=== PATIENT | female | born 1985 | race Two or more races ===

== ENCOUNTER → 2024-07-22 | Outpatient (CLI) | payer OTHER, SELFPAY ==
--- NOTE | 2024-07-22 14:00 | XR_ITS ---
Examination: MRI right hand, without contrast Date and time of exam: July 22, 2024 1346 hrs. Indications: Right third digit stiffness numbness paresthesias after falling 3 months ago Technique: Multiple axial sagittal and coronal images of the right hand have been obtained with the Siemens high-resolution 1.5 Amy MRI scanner. Images obtained include T2-weighted fat-suppressed sagittal sections, TR 3500, TE 46, T2 weighted coronal fat suppressed images, TR 3050, TE 84, T2-weighted transverse fat suppressed images, TR 3260, TE 63, proton density transverse images, TR 4720 TE 46, and T1 weighted coronal images, TR 560, TE 13. Findings: No occult fracture, bone contusion marrow edema or avascular necrosis No asymmetric joint effusions There is edema in the subcutaneous fatty tissue surrounding the third digit Flexor extensor tendons are intact No annular franck tear At the wrist flexor tendons intact with normal median nerve No ganglion cyst No foreign body No soft tissue abscess Negative for cortical bone destruction Impression: Nonspecific edema in the subcutaneous fatty tissues surrounding the third digit especially the proximal phalanx No occult fracture bone contusion or marrow edema Flexor and extensor tendons appear intact with no annular franck tears
== END | disposition home or self-care (01) ==
PROVIDERS: PCP Registered Nurse; Referring Provider Registered Nurse; Visit Provider Registered Nurse
DX: M25.441 Effusion, right hand (principal)
CPT/HCPCS: 73218

== ENCOUNTER 2024-09-12 12:34 | Emergency (ER) | payer OTHER, SELFPAY ==
[2024-09-12 12:35] VITALS: BMI 28.0
[2024-09-12 13:16] VITALS: BP 120/74; PULSE 99; RESP 18; TEMP 36.8; O2SAT 98
--- NOTE | 2024-09-12 13:23 | XR_ITS ---
Examination: PA lateral chest 2 views TECHNIQUE: Upright PA lateral chest 2 views Exam date and time: September 12, 2024 1333 hours INDICATIONS: Left chest pain beginning 3 days ago. FINDINGS: Normal heart size. Lungs are clear. Osseous structures are intact. IMPRESSION: No active disease
--- NOTE | 2024-09-12 13:23 | EKG_ITS ---
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
--- NOTE | 2024-09-12 13:25 | PD.EDRME ---
Rapid Medical Screening Exam RME Arrival date/time: 09/12/24 12:34 39-year-old female presents the emergency department complaint of chest pain Chief Complaint: Chest Pain Time Seen by Provider: 09/12/24 13:10 Vital signs: Vital Signs Temperature 98.3 F 09/12/24 13:16 Pulse Rate 99 09/12/24 13:16 Respiratory Rate 18 09/12/24 13:16 Blood Pressure 120/74 09/12/24 13:16 Pulse Oximetry (%) 98 09/12/24 13:16 Oxygen Delivery Method Room Air 09/12/24 13:16
[2024-09-12 14:06] LABS: Basophils # (Auto) 0.1 Thou/mm3 (0.0-0.2); Basophils % (Auto) 1 % (0-2.5); Eosinophils # (Auto) 0.1 Thou/mm3 (0.0-0.5); Eosinophils % (Auto) 2 % (0-10); Hematocrit 35.8 % (36.0-46.0); Hemoglobin 12.1 g/dL (12.0-16.0); Immature Granulocytes % (Auto) 0 % (0-0); Immature Granulocytes Auto 0.02 Thou/mm3 (0.00-0.00); Lymphocytes # (Auto) 1.8 Thou/mm3 (1.0-4.8); Lymphocytes % (Auto) 23 % (10-50); Mean Corpuscular HGB Conc 33.8 g/dl (31.0-37.0); Mean Corpuscular Hemoglobin 30.3 pg (25.0-35.0); Mean Corpuscular Volume 90 fL (80-100); Monocytes # (Auto) 0.4 Thou/mm3 (0.0-0.8); Monocytes % (Auto) 5 % (0-12); Neutrophils # (Auto) 5.4 Thou/mm3 (1.8-7.7); Neutrophils % (Auto) 69 % (37-80); Nucleated Red Blood Cell % 0 /100 WBC (0); Platelet Count 303 Thou/mm3 (140-440); RDW Standard Deviation 40.7 fL (36.4-46.3); Red Blood Count 3.99 Miln/mm3 (4.00-5.20); White Blood Count 7.8 Thou/mm3 (3.6-11.0)
[2024-09-12 14:17] LABS: Alanine Aminotransferase 43 U/L (10-49); Albumin, Serum 4.3 gm/dL (3.5-5.0); Albumin/Globulin Ratio 1.7 (1.2-2.2); Alkaline Phosphatase 57 U/L (46-116); Anion Gap 9 (7-16); Aspartate Amino Transferase 36 U/L (0-34); BUN/Creatinine Ratio 13 Ratio (12-20); Bilirubin,Total 0.3 mg/dL (0.3-1.2); Blood Urea Nitrogen 9 mg/dL (9-23); Calcium 9.8 mg/dL (8.3-10.6); Calcium (Corrected) 9.8 mg/dL (8.5-10.1); Carbon Dioxide 23.8 mMol/L (20.0-31.0); Chloride 108 mMol/L (98-107); Creatinine (Component) 0.7 mg/dL (0.6-1.3); Estimated Creatinine Clearance 86.2 mL/min (>60); Globulin 2.6 gm/dL (2.3-3.5); Glucose 93 mg/dL (74-106); Osmolality,Calculated 279 (275-295); Sodium 141 mMol/L (136-145); Total Protein 6.9 gm/dL (5.7-8.2); Troponin I < 0.002 ng/mL (0.0-0.045); eGFR > 60 See Note
[2024-09-12 14:28] LABS: HCG Qualitative,Urine Negative
--- NOTE | 2024-09-12 15:53 | EDNOTE_ITS ---
ED Chest Pain RME/HPI General Chief Complaint: Chest Pain Stated Complaint: CHEST PAIN X3 DAYS Time Seen by Provider: 09/12/24 13:10 Arrival date/time: 09/12/24 12:34 39 year old female present to emergency room with c/o of chest pain for 2 days. patient report recently lost her father on wednesday and still grieving. Pt report right arm tingling/numbness without injury or trauma. Pt denies any cardiac history, illicit drug/alcohol abuse. LOCATION: arm/chest SEVERITY: Symptoms are described as being severe with limitations on activities of daily living QUALITY: Symptoms are described as being dull or achy CONTEXT: unknown DURATION/TIMING: The symptoms started approximately 2 days ago and have been co nstant this then. ASSOCIATED SYMPTOMS: The patient is unable to identify any other associated symptoms. MODIFYING FACTORS: The patient is unable to identify any alleviating or aggravating symptoms. PERTINENT ROS: no fevers, no headache, no neck or sob , no unexplained nausea or vomiting, no focal neurological deficits REVIEW OF SYSTEMS: See History of Present Illness - with the exception of those mentioned in the history of present illness, all other systems reviewed and reported as negative GENERAL: In general the patient is awake, interactive, in an emergency department gurney. HEAD/EYES/EARS/NOSE/THROAT: normo-cephalic, atraumatic, mucus membranes are moist, anicteric, palpebral conjunctiva is pink, trachea is midline. CARDIOVASCULAR: regular rate and regular rhythm, no murmurs, heart sounds are not distant, strong pulses in all four extremities that are equal and symmetric bilateral upper and lower extremities, normal capillary refill. CHEST/PULMONARY: + reducible chest pain, normal chest rise and fall, good air movement, clear to auscultation bilaterally, normal inspiratory to expiratory ratios without evidence of respiratory distress. NECK: No midline/Paraspinal tenderness, no step off ROM/Strenght intact No Kernig and bruzinski sign. No trauma ABDOMEN: soft, not tender, no masses appreciated BACK: normal range of motion without pain. NEUROLOGICAL: cranio-facial features are symmetric, moves all four extremities equally without obvious limitations or weakness. EXTREMITY: no tenderness to palpation over the long bones or large joints of the bilateral upper and lower extremities, no joint swelling, no joint erythema, no signs of trauma, no unilateral leg swelling and no peripheral edema. SKIN: warm, dry, well-perfused, no jaundice, no rash, no telangiectasias or petechia. PSYCH: calm, cooperative, no evidence of psychosis or agitation RME / HPI RME / HPI narrative: 09/12/24 12:34 39-year-old female presents the emergency department complaint of chest pain Related Data Previous Rx's ?Medication ?Instructions ?Recorded cyclobenzaprine 10 mg tablet 10 mg PO TID PRN muscle s pasm #30 01/31/21 tabs ibuprofen 600 mg tablet 600 mg PO Q8H PRN pain #30 t abs 01/31/21 ibuprofen 600 mg tablet 600 mg PO Q8H PRN pain #30 t abs 09/30/21 cyclobenzaprine 10 mg tablet 10 mg PO TID PRN muscle s pasm #21 02/13/22 tabs tramadol 37.5 mg-acetaminophen 325 1 tab PO TID PRN pa in #20 tabs 02/13/22 mg tablet (Ultracet) hydrocodone 5 mg-acetaminophen 325 1 tab PO BID PRN pa in #6 tabs 05/06/22 mg tablet ibuprofen 600 mg tablet 600 mg PO Q6H #30 tabs 05/06 alprazolam 0.5 mg tablet (Xanax) 0.5 mg PO BID PRN anx iety #5 tabs 11/26/22 ondansetron 4 mg disintegrating 4 mg PO Q8H PRN nausea and 11/26/22 tablet vomiting #14 tabs Allergies Allergy/AdvReac Type Severity Reaction Status Date / Time corn syrup Allergy Intermediate NAUSEA, Verified 09/12/24 12:37 VOMITING, MCKINNEY, CHEST TIGHTNESS codeine Allergy Rash Verified 09/12/24 12:37 ibuprofen Allergy Verified 09/12/24 12:37 Course Course Course Narrative: Medical Decision Making Patient presenting for evaluation of chest pain.? ?Pt immediately placed on cardiac, NBP, and oximetry monitors, which were all within normal limits.? ECG obtained and reviewed, which was NSR without any acute ST/T wave changes. CXR obtained and reviewed and did not demonstrate any acute abnormalities.? Labs obtained as noted above and were essentially unremarkable.? Troponin was negative. History, physical exam, laboratory, and radiographic findings were discussed with the patient.? At this time, it is felt that the most likely explanation for the patient's symptoms is chest wall pain.? I also considered pericarditis, ACS, angina, PE, pneumonia, rib fracture, and PTX, but this appears less likely considering the data gathered thus far.? I have instructed the patient to return to the ER at any time if there are any new or worsening symptoms.? The patient expressed understanding of and agreement with this plan.? Opportunity was given for questions prior to discharge and all stated questions were answered to the patient's satisfaction.? Home care instructions provided.?? Treatments provided included with ativan improvement in symptoms. Patient prescribed? Follow up in one or two days, present to ER with new or worsening symptoms. Quality Measures none Orders Category Date Time Status EKG (ED ONLY) *Do not use* NOW Care 09/12/24 13:23 Completed EKG (ED Only) Stat Exams 09/12/24 13:23 Draft XR chest 2V Stat Exams 09/12/24 13:23 Completed CBC Stat Lab 09/12/24 13:39 Completed Comprehensive Metabolic Panel Stat Lab 09/12/24 13:39 Completed Drug Screen,Urine Stat Lab 09/12/24 14:03 Completed HCG Qualitative,Urine Stat Lab 09/12/24 14:03 Completed Troponin I Stat Lab 09/12/24 13:39 Completed LORazepam [Ativan] Med 09/12/24 15:51 Discontinued 0.5 mg PO X1 ONE Ondansetron Odt [Zofran Odt] Med 09/12/24 16:57 Discontinued 4 mg PO X1 ONE Reevaluation(s) Reevaluation #1: chest pain has improved with ativan Vital Signs Vital signs: Vital Signs Temperature 98.3 F 09/12/24 13:16 Pulse Rate 99 09/12/24 13:16 Respiratory Rate 18 09/12/24 13:16 Blood Pressure 120/74 09/12/24 13:16 Pulse Oximetry (%) 98 09/12/24 13:16 Oxygen Delivery Method Room Air 09/12/24 13:16 Chest Pain Patient data External records reviewed:: [facility] previous records Clinical information provided by:: patient Social determinants that could affect healthcare access:: none Patient has the following chronic illnesses:: n/a How is presenting disease/condition affected by chronic disease/condition?: no chronic disease Evaluation data The following diagnostics were reviewed and interpreted by me:: lab results, radiology exam(s) and EKG tracing(s) Lab and/or radiology exams considered but not ordered:: n/a Interpretation Summary: cbc/cmp wnl trop negative cxr: nad Medications / Prescriptions Medications or Prescriptions considered but not ordered:: n/a Medication administrations:: Medication Administration History Discontinued Medications Lorazepam (Lorazepam 0.5 Mg Tablet) 0.5 mg PO X1 ONE Stop: 09/12/24 15:52 Last Admin: 09/12/24 16:26 Dose: 0.5 mg Documented By: GALLO Ondansetron HCl (Ondansetron Odt 4 Mg Tabrap) 4 mg PO X1 ONE; Protocol Stop: 09/12/24 16:58 as stated above Consultations Consultation(s) initiated? (list below): No Diagnosis Chest Pain Differential Diagnosis: pneumothorax, stable angina, unstable angina pectoris, atypical chest pain, st elevation myocardial infarction, cos tochondritis, chest pain and other (anxiety, muscular pain ) Most likely diagnosis given after review of the tests above:: chest pain, anxiety Admission Indicated Admission indicated?: not indicated Admission Request Was there a request for admission?: No Disposition Plan Disposition Plan: Discharge Discharge Attestation Discharge Attestation: The patient and all family members were given an opportunity to ask questions and understood the discharge instructions. Discharge instructions specifically effects, indications for sooner follow up or return to the emergency department, and the expected course of current diagnosis. Patient condition: Stable Discharge Plan Plan Patient Disposition: HOME (Self Care) Prescriptions/Referrals Prescriptions/Med Rec: No Action cyclobenzaprine 10 mg tablet 10 mg PO TID PRN (Reason: muscle spasm) Qty: 30 0RF ibuprofen 600 mg tablet 600 mg PO Q8H PRN (Reason: pain) Qty: 30 0RF tramadol-acetaminophen [Ultracet] 37.5-325 mg tablet 1 tab PO TID PRN (Reason: pain) Qty: 20 0RF cyclobenzaprine 10 mg tablet 10 mg PO TID PRN (Reason: muscle spasm) Qty: 21 0RF ibuprofen 600 mg tablet 600 mg PO Q8H PRN (Reason: pain) Qty: 30 0RF hydrocodone-acetaminophen 5-325 mg tablet 1 tab PO BID MDD 10 PRN (Reason: pain) Qty: 6 0RF ibuprofen 600 mg tablet 600 mg PO Q6H Qty: 30 0RF alprazolam [Xanax] 0.5 mg tablet 0.5 mg PO BID PRN (Reason: anxiety) Qty: 5 0RF ondansetron 4 mg tablet,disintegrating 4 mg PO Q8H PRN (Reason: nausea and vomiting) Qty: 14 0RF Referrals: Rosi Gramajo [facility] [facility] [Primary Care Provider] - In 1 week Problem List Clinical Impression: Chest pain Patient/Caregiver Discharge Instructions Education Materials: ED Chest Pain, Uncertain Cause Print Language: Samoan Stand Alone Forms: [employer] Award Info., Work/School Release, Patient Portal Info Letter
[2024-09-12 16:02] LABS: Amphetamine/Methamp Scrn,U Negative (Negative); Barbiturate Screen,Urine Negative (Negative); Benzodiazepines Screen,Urine Positive (Negative); Benzoylecgonine Screen, Ur Negative (Negative); Fentanyl Screen,Urine Negative (Negative); Opiate Screen,Urine Negative (Negative); THC Screen,Urine Positive (Negative)
[2024-09-12] MEDS: LORazepam 0.5 MG TABLET PO (16:26)
[2024-09-12] MEDS: ONDANSETRON ODT 4 MG TABRAP PO (17:14)
[2024-09-12 17:20] VITALS: BP 124/74; PULSE 84; RESP 16; TEMP 36.9; O2SAT 98
== END 2024-09-12 17:25 | disposition home or self-care (01) ==
PROVIDERS: Nurse Practitioner Primary Care; Emergency Provider Emergency Medicine; PCP Registered Nurse
DX: R07.9 Chest pain, unspecified (principal)
CPT/HCPCS: 36415; 71046; 80053; 80307; 81025; 84484; 85025; 93005; 99283; Q0162; A9270

== ENCOUNTER → 2025-03-09 | Outpatient (CLI) | payer OTHER, SELFPAY ==
--- NOTE | 2025-03-09 15:37 | XR_ITS ---
Examination: Lumbar spine, 5 views Technique: Lumbar spine AP, lateral, coned lateral lower lumbar spine, bilateral obliques 5 views Exam date and time: March 09, 2025, 1544 hrs. Indications: Patient fell 4 days ago with injury to the lower back, lower back pain. Findings: Satisfactory alignment lumbar vertebral bodies Mild disc narrowing posteriorly L5-S1 No lumbar fracture No spondylolisthesis Impression: Early degenerative disc disease L4-L5
== END | disposition home or self-care (01) ==
LOC: CDIM 15:30
PROVIDERS: PCP Family Medicine; Referring Provider Student in an Organized Health Care Education/Training Program; Visit Provider Student in an Organized Health Care Education/Training Program
DX: M51.360 Other intervertebral disc degeneration, lumbar region with discogenic back pain only (principal); S39.92XA Unspecified injury of lower back, initial encounter; W19.XXXA Unspecified fall, initial encounter
CPT/HCPCS: 72110

== ENCOUNTER → 2025-05-21 | Outpatient (CLI) | payer OTHER, SELFPAY ==
--- NOTE | 2025-05-21 13:31 | XR_ITS ---
Examination: Lumbar spine, 5 views Technique: Lumbar spine AP, lateral, coned lateral lower lumbar spine, bilateral obliques 5 views Exam date and time: May 21, 2025, 1408 hours INDICATIONS: Patient fell off a ladder May 09, 2025 with injury of the lower back, lower back pain. FINDINGS: Adequate alignment lumbar vertebral bodies No lumbar fracture Mild to moderate disc narrowing posteriorly L5-S1 No spondylolisthesis IMPRESSION: No lumbar fracture Mild to moderate disc narrowing posteriorly L5-S1
== END | disposition home or self-care (01) ==
LOC: CDIM 13:23
PROVIDERS: Referring Provider Student in an Organized Health Care Education/Training Program; Visit Provider Student in an Organized Health Care Education/Training Program
DX: M48.07 Spinal stenosis, lumbosacral region (principal)
CPT/HCPCS: 72110